=== PATIENT | female | born 1975 | race Caucasian/White ===

== ENCOUNTER 2019-09-20 12:18 | Emergency (ER) | payer SELFPAY ==
--- NOTE | ~2019-09-20 | CT_ITS ---
EXAMINATION: CT abdomen pelvis w con DATE: 09/20/2019 13:55 INDICATION: Abdominal pain TECHNIQUE: Computed tomography (CT) of the abdomen and pelvis was performed with 100 mL Omnipaque-350 intravenous contrast. Automated exposure control and iterative reconstruction technique were employe d. The dose-length product was 186.06 mGy-cm. COMPARISON: None FINDINGS: Lung bases are clear. Small sliding-type hiatal hernia. No pericardial or pleural effusion. Cholecyst ectomy clips the gallbladder fossa. Liver, spleen, bilateral adrenal glands and right kidney are norm al. 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 It is unclear whether disease subsequently fuse prior to the bladder. Bladder is decompressed w ith small amount of excreted contrast in the dependent trigonal regions. Numerous dystrophic calcific ations throughout the pancreas consistent with sequela of chronic pancreatitis. There is a stent exte nding from the main pancreatic duct in the body of the pancreas into the duodenum. The course of the stent lies anterior to the distal aspect of the common bile duct suggesting pancreas divisum. The com mon bile duct is mildly dilated which is within normal limits post cholecystectomy. Normal appendix. There are few sigmoid diverticula without adjacent inflammatory change to suggest diverticulitis. No bowel obstruction or abnormal bowel wall thickening. Couple fluid attenuation follicles at the left o vary the larger measuring 1.5 cm. The right ovary and anteverted uterus are normal. No free intraperi toneal gas or fluid. No pathologically enlarged abdominal or pelvic lymphadenopathy. Transitional tho racolumbar segment with bilateral hypoplastic riblets. Transitional lumbosacral segment which is sacr alized on the right and which also demonstrates an unfused spinous process. There are 4 intervening n onrib-bearing lumbar segments. IMPRESSION: 1. No acute intra-abdominal/pelvic process. 2. Small sliding-type hiatal hernia. 3. Pancreatic stent in expected position with extensive dystrophic calcifications throughout the panc reas consistent with sequela of chronic pancreatitis. Reviewed, dictated and finalized at location A. IMPRESSION: 1. No acute intra-abdominal/pelvic process. 2. Small sliding-type hiatal hernia. 3. Pancreatic stent in expected position with extensive dystrophic calcificatio ns throughout the pancreas consistent with sequela of chronic pancreatitis.
[2019-09-20 12:20] VITALS: BP 130/94; PULSE 118; RESP 19; TEMP 36.7; O2SAT 98
--- NOTE | 2019-09-20 12:39 | ED.ABDPAIN ---
HPI - Abdominal Pain General Chief Complaint: Abdominal Pain Stated Complaint: ABD PAIN - N/V Time Seen by Provider: 09/20/19 12:21 Source: RN notes reviewed History of Present Illness HPI narrative: Patient presents emergency department from home for abdominal pain. Patient states symptoms began 4 days ago. The pain is located across the upper abdomen described as aching in nature does not radiate. Associated with numerous episodes of nausea vomiting. Denies any diarrhea. Denies any fevers or chills or any other symptoms. Related Data Allergies Allergy/AdvReac Type Severity Reaction Status Date / Time codeine Allergy Unknown Verified 09/20/19 12:44 morphine Allergy Unknown Verified 09/20/19 12:44 Review of Systems Review of Systems: Narrative: Gen.: Denies fevers or chills ENT: Denies congestion Respiratory: Denies shortness of breath or cough CV: Denies chest pain or palpitations GI: See HPI denies burning, urgency, frequency or hematuria Musculoskeletal: Denies back pain or muscle pain Neuro: Denies numbness, tingling, weakness or focal weakness Skin: Denies rash Except as documented, all other systems reviewed and negative [facility] Surgical History Surgical History (Updated 09/20/19 @ 12:39 by Valeriano Chin DO) History of cholecystectomy Social History Social History (Updated 09/20/19 @ 12:39 by Valeriano Chin DO) Smoking packs per day: 0.5 Smoking cigarettes per day: 10.0 Gender identity (if verbalized by the patient): Female Exam Narrative: Exam Narrative: APPEARANCE: No acute distress, nontoxic, resting in bed HEENT: Normocephalic, atraumatic, OMM RESPIRATORY: No respiratory distress, clear to auscultation bilaterally with no rhonchi wheezing or rales CARDIOVASCULAR: RRR s murmur ABDOMINAL: Soft, nondistended, tender palpation epigastric and right upper quadrant left upper quadrant, no tenderness right lower quadrant left lower quadrant, no rebound or guarding MUSCULOSKELETAl: Moves all extremities. No clubbing, cyanosis or edema. NEURO: Awake and alert. Following commands, speech normal, no focal deficits SKIN:: Warm, dry. Normal Color PSYCHIATRIC: Normal affect/mood Course Course Emergency Course: Patient states she is currently visiting her father most from [facility] normally when this occurs abdominal pain she receives Dilaudid for pain management Patient states that they are feeling much better at this time. States abdominal pain has resolved. Repeat abdominal exam shows the patient's abdomen to be soft and nontender. Discussed with patient results of workup and diagnosis. Discussed need for follow-up with primary care physician, reasons to return to the emergency department in proper use of medication. Patient understands and agrees to current treatment plan Vital Signs Vital signs: Vital Signs Temperature 98.0 F 09/20/19 12:20 Pulse Rate 118 H 09/20/19 12:20 Respiratory Rate 19 09/20/19 12:20 Blood Pressure 130/94 H 09/20/19 12:20 Pulse Oximetry 98 09/20/19 12:20 Temperature 98.0 F 09/20/19 12:20 Pulse Rate 74 09/20/19 14:20 Respiratory Rate 16 09/20/19 14:20 Blood Pressure 141/97 H 09/20/19 14:20 Pulse Oximetry 98 09/20/19 14:20 MDM - Abdominal Pain MDM Narrative Medical decision making narrative: Patient's abdomen is soft without significant pain or signs of surgical abdomen on serial exams. Lab and x-ray evaluations are reviewed and patient is felt to be a reasonable candidate for outpatient management. Patient was instructed as to limitations of x-ray and laboratory evaluation and encouraged to return to ED or primary physician for repeat exam in 12 hours if continued or worsening pain Lab Data Result diagrams: 09/20/19 13:28 09/20/19 13:37 Labs: Lab Results 09/20/19 09/20/19 09/20/19 Range/Units 13:28 13:28 13:29 WBC 8.9 (4.5-10.0) K/mm3 RBC 5.05 (4.2-5.4) M/mm3 Hgb 17.2 H (12.0-
[2019-09-20] MEDS: ONDANSETRON INJ 4 MG/2 ML VIAL IV PUSH (12:54)
[2019-09-20] MEDS: SODIUM CHLORIDE 0.9% IV 1,000 ML 999 ML IV CONT ×2 (13:23→14:19)
[2019-09-20 13:36] LABS: Basophils Percent Auto 0.2 % (0.2-1.2); Eosinophils Absolute Auto 0.1 K/mm3 (0-0.3); Eosinophils Percent Auto 0.6 % (0-4.4); Hemoglobin 17.2 g/dL (12.0-15.0); Immature Granulocyte Absolute 0.03 K/mm3 (0.00-0.031); Immature Granulocyte Percent A 0.3 % (0-0.5); Lymphocytes Absolute Auto 1.58 K/mm3 (0.9-3.2); Lymphocytes Percent Auto 17.7 % (18.3-44.2); Mean Corpuscular HGB Conc 35.1 g/dl (32-36); Mean Corpuscular Hemoglobin 34.1 pg (26-34); Mean Platelet Volume 11.2 fl (7.4-10.4); Monocytes Absolute Auto 1.6 K/mm3 (0.1-0.6); Monocytes Percent Auto 18.4 % (2.6-8.5); Neutrophils Absolute Auto 5.6 K/mm3 (1.3-6.7); Neutrophils Percent Auto 62.8 % (45.5-73.1); Platelet Count Result 168 k/mm3 (150-375); Red Blood Count 5.05 M/mm3 (4.2-5.4); Red Cell Distribution Width 12.5 % (11.5-14.5); White Blood Count 8.9 K/mm3 (4.5-10.0)
[2019-09-20 13:37] LABS: Estimated CRCL calculation 110 ml/min; Estimated Glomerular Filt Rate > 60
[2019-09-20 13:42] LABS: Add Urine Microscopic? YES; Appearance Urine Cloudy (Clear); Bacteria Urine Trace /hpf; Bilirubin Urine 1+ (Negative); Blood Urine 1+ (Negative); Color Urine Amber (Yellow); Glucose Urine UA 1+ mg/dL (Negative); Hyaline Casts Urine 50+ /lpf; Ketones Urine 2+ mg/dL (Negative); Leukocyte Esterase Ur Negative LEU/UL (Negative); Mucus Urine Few /lpf; Nitrate Urine Negative (Negative); Protein Urine 3+ mg/dL (Negative); RBC Urine 0-2 /hpf (0-2); Squamous Epithelial Cell Urine Many /hpf (Few); WBC Urine 31-50 /hpf
[2019-09-20 13:49] LABS: Specific Grav Ur 1.037 (1.001-1.035)
[2019-09-20 13:49] LABS: Alanine Aminotransferase 24 U/L (4-35); Alkaline Phosphatase 97 U/L (38-126); Aspartate Amino Transferase 43 U/L (14-36); Bilirubin,Total 1.4 mg/dL (0.2-1.3); Blood Urea Nitrogen 12 mg/dL (7-17); Calcium 11.1 mg/dL (8.4-10.2); Carbon Dioxide 28 mmol/L (22-30); Chloride 87 mmol/L (98-107); Estimated CRCL calculation 110 ml/min; Estimated Glomerular Filt Rate > 60; Glucose 146 mg/dL (65-105); Lipase 72 U/L (23-300); Potassium 3.1 mmol/L (3.4-5.0); Sodium 131 mmol/L (137-145)
[2019-09-20] MEDS: PROMETHAZINE HCL 25 MG/ML AMPUL 12.5 MG IV PUSH (14:19)
[2019-09-20 14:20] VITALS: BP 141/97; PULSE 74; RESP 16; O2SAT 98
[2019-09-20] MEDS: HYDROMORPHONE HCL 1 MG/ML INJ 0.5 MG IV PUSH (16:01)
[2019-09-20] MEDS: POTASSIUM CHLORIDE 20 MEQ TABLET 40 MEQ PO (16:26)
== END 2019-09-20 17:05 | disposition home or self-care (01) ==
PROVIDERS: Emergency Provider Emergency Medicine
DX: R10.11 Right upper quadrant pain (principal); R11.2 Nausea with vomiting, unspecified; F17.210 Nicotine dependence, cigarettes, uncomplicated
CPT/HCPCS: 36415; 74177; 80053; 81001; 81025; 83690; 85025; 87086; 87088; 96361; 96365; 96375; 99284; A9270; J0131; J1170; J2405; J2550; J7030; Q9967

== ENCOUNTER 2019-11-28 21:31 | Emergency (ER) | payer MEDICAID, SELFPAY ==
--- NOTE | ~2019-11-28 | CT_ITS ---
EXAMINATION: CT abdomen pelvis w con EXAM DATE: 11/28/2019 22:25 INDICATION: Epigastric pain. TECHNIQUE: Spiral CT of the abdomen and pelvis was performed following intravenous injection of 100 m L Omnipaque 350. Axial, coronal and sagittal images were reviewed. The dose-length product (DLP) fo r this examination was 233.43 mGy-cm. The exposure was tailored according to patient size (auto mA e xposure control), and iterative reconstruction (ASIR) was used as additional dose reduction technique . Comparison is made to prior examination from 09/20/2019. FINDINGS: Multiple pancreatic calcifications, history of chronic pancreatitis. There is a pancreatic duct stent. Some dilation of the pancreatic tail duct. There are cholecystectomy clips. The liver, s pleen, adrenal glands are unremarkable. Portal and splenic veins are patent. Kidneys enhance symmet rically. There is no hydronephrosis. The uterus is unremarkable. Mildly dilated gonadal veins. The bladder is unremarkable. There is no retroperitoneal or pelvic lymphadenopathy. The appendix is normal. The stomach and small bowel are unremarkable. There is mild scattered coloni c diverticulosis. There is no adjacent inflammatory change to suggest diverticulitis. No free intra peritoneal gas. The heart is normal in size. There are no pericardial or pleural effusions. The l zeynep bases are unremarkable. There are no osteoblastic or osteolytic lesions identified. IMPRESSION: 1. No acute intra-abdominal findings. 2. Mildly dilated gonadal veins, possible pelvic congestion syndrome. 3. Mild colonic diverticulosis. Reviewed, dictated and finalized at location B.
[2019-11-28 21:34] VITALS: BP 138/99; PULSE 83; RESP 16; TEMP 36.8; O2SAT 100
[2019-11-28 22:00] LABS: Basophils Percent Auto 0.2 % (0.2-1.2); Hematocrit 44.4 % (37.0-47.0); Hemoglobin 15.5 g/dL (12.0-15.0); Immature Granulocyte Absolute 0.03 K/mm3 (0.00-0.031); Immature Granulocyte Percent A 0.4 % (0-0.5); Lymphocytes Absolute Auto 1.28 K/mm3 (0.9-3.2); Lymphocytes Percent Auto 15.8 % (18.3-44.2); Mean Corpuscular HGB Conc 34.9 g/dl (32-36); Mean Corpuscular Hemoglobin 34.4 pg (26-34); Mean Corpuscular Volume 98.4 fl (80-100); Mean Platelet Volume 10.4 fl (7.4-10.4); Monocytes Percent Auto 12.6 % (2.6-8.5); Neutrophils Absolute Auto 5.8 K/mm3 (1.3-6.7); Platelet Count Result 257 k/mm3 (150-375); Red Blood Count 4.51 M/mm3 (4.2-5.4); Red Cell Distribution Width 13.3 % (11.5-14.5); White Blood Count 8.1 K/mm3 (4.5-10.0)
[2019-11-28 22:07] LABS: Alanine Aminotransferase 16 U/L (4-35); Albumin Level 4.9 g/dL (3.5-5.1); Alkaline Phosphatase 95 U/L (38-126); Anion Gap 15 mmol/L (8-16); Aspartate Amino Transferase 24 U/L (14-36); Bilirubin,Total 0.8 mg/dL (0.2-1.3); Blood Urea Nitrogen 8 mg/dL (7-17); Calcium 10.2 mg/dL (8.4-10.2); Carbon Dioxide 25 mmol/L (22-30); Chloride 90 mmol/L (98-107); Estimated Glomerular Filt Rate > 60; Glucose 142 mg/dL (65-105); Lipase 54 U/L (23-300); Sodium 130 mmol/L (137-145)
[2019-11-28] MEDS: ONDANSETRON INJ 4 MG/2 ML VIAL IV PUSH (22:07)
[2019-11-28] MEDS: SODIUM CHLORIDE 0.9% IV 1,000 ML 999 ML IV CONT (22:08)
--- NOTE | 2019-11-28 22:10 | ED.ABDPAIN ---
HPI - Abdominal Pain General Chief Complaint: Abdominal Pain Stated Complaint: pancreatitis Time Seen by Provider: 11/28/19 21:42 Source: patient and family Mode of arrival: ambulatory Limitations: no limitations History of Present Illness HPI narrative: 44 years old white female presents with epigastric and right upper quadrant pain started 3 days ago associated with nausea and frequent vomiting. Patient cannot keep anything down. Patient also reports fever up to 100.6 and chills. History of cholecystectomy 2 years ago in [place] with complication. Last menstrual period 1 week ago, patient had similar symptoms in the last few months and came to our emergency room at that time. Related Data Allergies Allergy/AdvReac Type Severity Reaction Status Date / Time codeine Allergy Unknown Verified 10/19/19 13:24 morphine Allergy Unknown Verified 10/19/19 13:24 Review of Systems Review of Systems: Narrative: CONSTITUTIONAL: Denies fever, chills, or sweats. EYES: Denies visual changes, redness, or discharge. ENT: Denies rhinorrhea, congestion, sore throat, or otalgia. CARDIOVASCULAR: Denies chest pain, palpitations, or edema. RESPIRATORY: Denies cough or dyspnea. GASTROINTESTINAL: Denies abdominal pain, nausea, vomiting, or diarrhea. GENITOURINARY: Denies dysuria or hematuria. SKIN: Denies rash or itching. MUSCULOSKELETAL: Denies back pain, joint pain, or myalgia. NEUROLOGIC: Denies headache, numbness, or weakness. PSYCHIATRIC: Denies anxiety or depression. PMFSH Surgical History Surgical History History of cholecystectomy Social History Social History (Updated 11/28/19 @ 22:15 by Meghan Patrick MD) Smoking packs per day: 0.5 Smoking cigarettes per day: 10.0 Tobacco type: cigarettes Alcohol intake: current Substance use type: marijuana Living arrangements: with family Gender identity (if verbalized by the patient): Female Exam Narrative: Exam Narrative: General appearance: Well-developed, well-nourished Skin: Normal color Head: Normocephalic, nontraumatic Eyes: Clear conjunctiva ENT: Oropharynx normal, ears normal, nose normal Neck: Supple, nontender Chest and respiratory: Airway patent, no respiratory distress, no accessory muscle use Heart: Regular rate/rhythm Abdomen: Severe tenderness epigastric and right upper quadrant. Quiet bowel sounds Vascular: Normal peripheral pulses, normal capillary refill. Musculoskeletal: Normal range of motion, nontender back Neurologic: Alert and oriented ?3, BROOM MAN is normal as tested, no gross motor deficit Course Course Emergency Course: Improving Vital Signs Vital signs: Vital Signs Temperature 36.8 C 11/28/19 21:34 Pulse Rate 83 11/28/19 21:34 Respiratory Rate 16 11/28/19 21:34 Blood Pressure 138/99 H 11/28/19 21:34 Pulse Oximetry 100 11/28/19 21:34 Temperature 36.8 C 11/28/19 21:34 Pulse Rate 72 11/29/19 00:18 Respiratory Rate 20 11/29/19 00:18 Blood Pressure 122/85 11/29/19 00:18 Pulse Oximetry 100 11/29/19 00:18 MDM - Abdominal Pain MDM Narrative Medical decision making narrative: History of cholecystectomy with complication. Labs, CT abdomen and pelvis with IV contrast, IV fluids, IV Dilaudid, IV Zofran ordered. Further plan to follow Differential Diagnosis Differential diagnosis: Likely abdominal pain, constipation, diverticulitis, gastroenteritis, pancreatitis and small bowel obstruction Lab Data Result diagrams: 11/28/19 21:50 11/28/19 21:50 Labs: Lab Results 11/28/19 11/28/19 11/28/19 Range/Units 21:50 21:50 22:03 WBC 8.1 (4.5-10.0) K/mm3
[2019-11-28 22:11] LABS: Add Urine Microscopic? YES; Appearance Urine Clear (Clear); Bacteria Urine Trace /hpf; Bilirubin Urine 1+ (Negative); Blood Urine Negative (Negative); Color Urine Yellow (Yellow); Glucose Urine UA 1+ mg/dL (Negative); Ketones Urine 2+ mg/dL (Negative); Leukocyte Esterase Ur Negative LEU/UL (Negative); Mucus Urine Rare /lpf; Nitrate Urine Negative (Negative); Protein Urine 2+ mg/dL (Negative); RBC Urine 0-2 /hpf (0-2); Squamous Epithelial Cell Urine Many /hpf (Few)
[2019-11-28 22:12] LABS: Specific Grav Ur 1.032 (1.001-1.035)
[2019-11-28 22:14] VITALS: BP 156/81; PULSE 55; RESP 20; O2SAT 97
[2019-11-28 22:33] VITALS: BP 167/95; PULSE 58; RESP 20; O2SAT 98
[2019-11-28 23:55] VITALS: BP 122/85; PULSE 72; RESP 20; O2SAT 98
[2019-11-29] MEDS: ONDANSETRON INJ 4 MG/2 ML VIAL (00:15)
[2019-11-29] MEDS: POTASSIUM CHLORIDE 20 MEQ PACKET (FOR LIQUID) 40 MEQ PO (00:15)
[2019-11-29 00:18] VITALS: BP 122/85; PULSE 72; RESP 20; O2SAT 100
== END 2019-11-29 00:19 | disposition home or self-care (01) ==
PROVIDERS: Emergency Medicine; Emergency Provider Emergency Medicine
DX: F43.9 Reaction to severe stress, unspecified (principal); E87.6 Hypokalemia; E87.1 Hypo-osmolality and hyponatremia; R10.13 Epigastric pain; R11.10 Vomiting, unspecified; F17.210 Nicotine dependence, cigarettes, uncomplicated
CPT/HCPCS: 36415; 74177; 80053; 81001; 81025; 83690; 85025; 96361; 96374; 96375; 99284; A9270; J1170; J2405; J7030; Q9967

== ENCOUNTER 2020-07-31 10:36 | Emergency (ER) | payer OTHER, SELFPAY ==
--- NOTE | ~2020-07-31 | CT_ITS ---
EXAMINATION: CT abdomen pelvis w con DATE: 07/31/2020 12:17 INDICATION: Upper abdominal pain. Vomiting. TECHNIQUE: Computed tomography (CT) of the abdomen and pelvis was performed with 100 mL Omnipaque 350 intravenous contrast. Automated exposure control and iterative reconstruction technique were employe d. The dose-length product was 210.37 mGy-cm. COMPARISON: CT abdomen and pelvis 11/28/2019 FINDINGS: The visualized portions of the lung bases demonstrate calcified pulmonary nodules, consiste nt with old granulomatous disease. No pleural effusion. The heart size is normal. No pericardial effu pio. The liver and spleen are normal. There are changes of cholecystectomy. There are parenchymal ca lcifications in the pancreas, consistent with chronic pancreatitis. Pancreas divisum is noted. There is a stent in the pancreatic duct. The pancreatic duct is mildly dilated in the tail of the pancreas without change. The adrenal glands and kidneys are normal. There are no dilated loops of bowel. The a ppendix is normal. There are no pathologically enlarged lymph nodes. There is no free intraperitoneal fluid. There is mild lumbar spondylosis. IMPRESSION: 1. Chronic pancreatitis with pancreatic stent in expected position. Reviewed, dictated and finalized at location B.
[2020-07-31 10:50] VITALS: BP 151/93; PULSE 70; RESP 16; TEMP 36.4; O2SAT 98
[2020-07-31 11:00] LABS: Basophils Percent Auto 0.1 % (0.2-1.2); Hematocrit 52.1 % (37.0-47.0); Hemoglobin 18.1 g/dL (12.0-15.0); Immature Granulocyte Absolute 0.01 K/mm3 (0.00-0.031); Immature Granulocyte Percent A 0.1 % (0-0.5); Lymphocytes Absolute Auto 0.87 K/mm3 (0.9-3.2); Lymphocytes Percent Auto 12.1 % (18.3-44.2); Mean Corpuscular HGB Conc 34.7 g/dl (32-36); Mean Corpuscular Hemoglobin 34.2 pg (26-34); Mean Corpuscular Volume 98.3 fl (80-100); Mean Platelet Volume 10.7 fl (7.4-10.4); Monocytes Absolute Auto 1.1 K/mm3 (0.1-0.6); Monocytes Percent Auto 14.9 % (2.6-8.5); Neutrophils Absolute Auto 5.2 K/mm3 (1.3-6.7); Neutrophils Percent Auto 72.8 % (45.5-73.1); Platelet Count Result 181 k/mm3 (150-375); Red Cell Distribution Width 12.1 % (11.5-14.5); White Blood Count 7.2 K/mm3 (4.5-10.0)
[2020-07-31 11:10] LABS: Alanine Aminotransferase 23 U/L (4-35); Alkaline Phosphatase 89 U/L (38-126); Anion Gap 6 mmol/L (8-16); Aspartate Amino Transferase 36 U/L (14-36); Bilirubin,Total 0.6 mg/dL (0.2-1.3); Blood Urea Nitrogen 9 mg/dL (7-17); Calcium 9.6 mg/dL (8.4-10.2); Carbon Dioxide 35 mmol/L (22-30); Chloride 92 mmol/L (98-107); Estimated CRCL calculation 113 ml/min; Estimated Glomerular Filt Rate > 60; Glucose 150 mg/dL (65-105); Lipase 187 U/L (23-300); Potassium 3.4 mmol/L (3.4-5.0); Sodium 133 mmol/L (137-145)
[2020-07-31 11:12] LABS: Add Urine Microscopic? YES; Appearance Urine Cloudy (Clear); Bacteria Urine Trace /hpf; Bilirubin Urine 1+ (Negative); Blood Urine Negative (Negative); Color Urine Amber (Yellow); Glucose Urine UA 3+ mg/dL (Negative); Ketones Urine 2+ mg/dL (Negative); Leukocyte Esterase Ur Negative LEU/UL (Negative); Mucus Urine Heavy /lpf; Nitrate Urine Negative (Negative); Protein Urine 2+ mg/dL (Negative); RBC Urine 0-2 /hpf (0-2); Specific Grav Ur 1.029 (1.001-1.035); Squamous Epithelial Cell Urine Many /hpf (Few); WBC Urine 0-3 /hpf
[2020-07-31] MEDS: SODIUM CHLORIDE 0.9% IV 1,000 ML 999 ML IV CONT ×2 (11:28→14:01)
--- NOTE | 2020-07-31 11:47 | ED.NAVMDI ---
HPI - Nausea/Vomiting/Diarrhea General Chief complaint: Nausea/Vomiting/Diarrhea Stated complaint: n/v/d x 4 days, - covid yesterday Time Seen by Provider: 07/31/20 11:22 Source: patient Mode of arrival: ambulatory Limitations: no limitations History of Present Illness HPI Narrative: This is a 45-year-old female that presents the emergency department for nausea and vomiting x4 days. Associated with diarrhea. Also reports upper abdominal discomfort. Reports from the vomiting she is now having trouble with her reflux as well. She was seen yesterday at urgent care and given Zofran with little relief. Denies fever, dysuria, or hematuria. Related Data Allergies Allergy/AdvReac Type Severity Reaction Status Date / Time codeine Allergy Unknown Verified 10/19/19 13:24 morphine Allergy Unknown Verified 10/19/19 13:24 Review of Systems Review of Systems: Narrative: CONSTITUTIONAL: Denies fever GASTROINTESTINAL: Reports abdominal pain, nausea, vomiting, and diarrhea. GENITOURINARY: Denies dysuria or hematuria. All systems reviewed & are unremarkable except as noted in HPI and below PMFSH Surgical History Surgical History History of cholecystectomy Social History Social History (Updated 11/28/19 @ 22:15 by Meghan Patrick MD) Smoking packs per day: 0.5 Smoking cigarettes per day: 10.0 Tobacco type: cigarettes Alcohol intake: current Substance use type: marijuana Gender identity (if verbalized by the patient): Female Exam Narrative: Exam Narrative: GENERAL: Well-appearing, well-nourished, and in no acute distress. HEAD: Normocephalic, atraumatic. EYES: EOMI. CHEST: Clear to auscultation. No respiratory distress. No wheezes rales or rhonchi HEART: Regular rate and rhythm. No murmur heard. Normal peripheral pulses. ABDOMEN: Soft, nondistended, normal active bowel sounds. Tender to palpation throughout the upper abdomen, without guarding. No CVA tenderness EXTREMITIES: Normal range of motion. No edema. SKIN: Warm, dry, no rash. NEURO: No focal deficits. Alert and oriented x3. PSYCH: Normal mood and affect Course Consultations Consultation #1: Spoke with her primary about work-up who will follow-up in clinic. Date: 07/31/20 Time: 14:30 Vital Signs Vital signs: Vital Signs Temperature 97.6 F 07/31/20 10:50 Pulse Rate 70 07/31/20 10:50 Respiratory Rate 16 07/31/20 10:50 Blood Pressure 151/93 H 07/31/20 10:50 Pulse Oximetry 98 07/31/20 10:50 Temperature 97.6 F 07/31/20 10:50 Pulse Rate 78 07/31/20 13:08 Respiratory Rate 18 07/31/20 13:08 Blood Pressure 132/60 07/31/20 13:08 Pulse Oximetry 99 07/31/20 13:08 MDM - Nausea/Vomiting/Diarrhea MDM Narrative Medical decision making narrative: Patient presents the emergency department for nausea and vomiting x3 days. She is afebrile and nontoxic-appearing. CBC is without leukocytosis. Does show hemoconcentration. Metabolic panel also shows some dehydration, but normal kidney function. UA with evidence of dehydration as well, but no evidence of UTI. Bedside test is negative. CT scan abdomen pelvis shows chronic pancreatitis with pancreatic stent in expected position. Her lipase is normal. Patient hydrated and given antiemetic with improvement. Reports she is feeling much better. Spoke with her primary about work-up who will follow-up in clinic. Patient is stable and felt appropriate for further outpatient evaluation. She was given warnings to return to the ER Lab Data Attestation: I reviewed the patient's lab results. Result diagrams: 07/31/20 10:50 07/31/20 10:50 Labs: Lab Results 07/31/20 07/31/20 07/31/20 Range/Units 10:50 10:50 10:50 WBC 7.2 (4.5-10.0) K/mm3 RBC 5.30 (4.2-5.4) M/mm3 Hgb 18.1 H (12.0-15.0) g/dL Hct 52.1 H (37.0-47.0) % MCV 98.3 (80-100) fl MCH 34.2 H (26-34) pg MCHC 34.
[2020-07-31] MEDS: PROCHLORPERAZINE EDISYLATE 10 MG/2 ML VIAL IV PUSH (12:05)
[2020-07-31] MEDS: PANTOPRAZOLE SODIUM IV 40 MG VIAL IV PUSH (12:05)
[2020-07-31] MEDS: diphenhydrAMINE HCl INJ 50 MG/ML VIAL 25 MG IV PUSH (12:05)
[2020-07-31 13:08] VITALS: BP 132/60; PULSE 78; RESP 18; O2SAT 99
[2020-07-31 15:00] VITALS: BP 145/96; PULSE 61; RESP 18; O2SAT 98
--- NOTE | 2020-07-31 15:01 | PC.NURSE ---
Pt taking very small sips of water. states i feel better so i dont want to mess it up
--- NOTE | 2020-07-31 15:09 | PC.NURSE ---
Pt has approx 300 mL left in NS bag. Pt up for DC following
[2020-07-31 15:34] VITALS: BP 164/97; PULSE 58; RESP 18; O2SAT 19
== END 2020-07-31 15:36 | disposition home or self-care (01) ==
PROVIDERS: Emergency Provider Emergency Medicine; PCP Family Medicine
DX: K86.1 Other chronic pancreatitis (principal); F17.210 Nicotine dependence, cigarettes, uncomplicated; Z96.89 Presence of other specified functional implants
CPT/HCPCS: 36415; 74177; 80053; 81001; 81025; 83690; 85025; 96361; 96365; 96375; 99284; C9113; J0131; J0780; J1200; J7030; Q9967

== ENCOUNTER 2020-10-13 09:03 | Outpatient (CLI) | payer OTHER, SELFPAY ==
[2020-10-13 09:34] LABS: Basophils Percent Auto 0.8 % (0.2-1.2); Hematocrit 38.8 % (37.0-47.0); Hemoglobin 13.2 g/dL (12.0-15.0); Immature Granulocyte Absolute 0.01 K/mm3 (0.00-0.031); Immature Granulocyte Percent A 0.3 % (0-0.5); Lymphocytes Absolute Auto 0.46 K/mm3 (0.9-3.2); Lymphocytes Percent Auto 12.7 % (18.3-44.2); Mean Corpuscular Hemoglobin 33.5 pg (26-34); Mean Corpuscular Volume 98.5 fl (80-100); Mean Platelet Volume 9.9 fl (7.4-10.4); Monocytes Absolute Auto 0.4 K/mm3 (0.1-0.6); Monocytes Percent Auto 9.7 % (2.6-8.5); Neutrophils Absolute Auto 2.8 K/mm3 (1.3-6.7); Neutrophils Percent Auto 76.5 % (45.5-73.1); Platelet Count Result 147 k/mm3 (150-375); Red Blood Count 3.94 M/mm3 (4.2-5.4); Red Cell Distribution Width 13.5 % (11.5-14.5); White Blood Count 3.6 K/mm3 (4.5-10.0)
[2020-10-13 09:55] LABS: Alanine Aminotransferase 78 U/L (4-35); Albumin Level 4.4 g/dL (3.5-5.1); Alkaline Phosphatase 76 U/L (38-126); Amylase 48 U/L (30-110); Anion Gap 10 mmol/L (8-16); Aspartate Amino Transferase 145 U/L (14-36); Bilirubin,Total 0.8 mg/dL (0.2-1.3); Blood Urea Nitrogen 5 mg/dL (7-17); Calcium 9.1 mg/dL (8.4-10.2); Carbon Dioxide 27 mmol/L (22-30); Chloride 99 mmol/L (98-107); Cholesterol 197 mg/dL (0-200); Estimated Glomerular Filt Rate > 60; Glucose 92 mg/dL (65-105); Lipase 100 U/L (23-300); Potassium 3.9 mmol/L (3.4-5.0); Sodium 136 mmol/L (137-145); Triglycerides 74 mg/dL (<150)
[2020-10-13 09:57] LABS: LDL Cholesterol Direct 47 mg/dL
[2020-10-13 10:06] LABS: HDL Direct 132 mg/dL
[2020-10-13 10:22] LABS: Vitamin D 25 Hydroxy 25.1 ng/mL
[2020-10-13 10:55] LABS: Iron 73 ug/dL (37-170)
[2020-10-13 11:06] LABS: Percent Iron Saturation 26 % (20-50)
== END 2020-10-13 09:04 | disposition home or self-care (01) ==
PROVIDERS: PCP Internal Medicine; Visit Provider Clinical Nurse Specialist
DX: K86.1 Other chronic pancreatitis (principal); E55.9 Vitamin D deficiency, unspecified; R53.83 Other fatigue
CPT/HCPCS: 36415; 80053; 80061; 82150; 82306; 82728; 83540; 83550; 83690; 84443; 85025

== ENCOUNTER 2020-10-13 09:49 | Outpatient (CLI) | payer OTHER, SELFPAY ==
--- NOTE | ~2020-10-13 | MMUS_ITS ---
EXAMINATION: MM diag christy implant BI w lou, US breast BI limited HISTORY: Palpable right breast abnormality. Recent Covid vaccination 2 days ago and left arm. TECHNIQUE: Additional 3-D tomosynthesis images of the breasts were performed and synthetic 2-D images were generated. CAD analysis was submitted and interpreted. High resolution limited right breast and left axillary ultrasound was performed. COMPARISON: No prior studies for comparison. BREAST PARENCHYMAL COMPOSITION: Breast composed of scattered areas of fibroglandular density. FINDINGS: MAMMOGRAPHIC FINDINGS: There are bilateral subpectoral silicone implants. There are multiple enlarged left axillary lymph no paulette compared with the right. There are no discrete breast masses or calcifications. No architectural distortion. ULTRASOUND: Limited right breast ultrasound: Normal heterogeneous echotexture without focal solid or cystic mass. Left axillary ultrasound: There are multiple slurry lymph nodes identified, largest measuring 2.4 x 1 .7 x 0.8 cm, all of which retain normal fatty hilum. IMPRESSION: 1. Probable benign left axillary lymph node secondary to recent vaccination. 2. Recommend 6 month follow-up diagnostic left mammogram and ultrasound BI-RADS category 3, probably benign findings. Reviewed, dictated and finalized at location A. IMPRESSION: 1. Probable benign left axillary lymph node secondary to recent vaccination. 2. Recommend 6 month follow-up diagnostic left mammogram and ultrasound BI-RADS category 3, probably benign findings.
== END 2020-10-13 09:50 | disposition home or self-care (01) ==
LOC: ANHIMG 09:51
PROVIDERS: PCP Internal Medicine; Visit Provider Clinical Nurse Specialist
DX: N63.10 Unspecified lump in the right breast, unspecified quadrant (principal); R92.8 Other abnormal and inconclusive findings on diagnostic imaging of breast
CPT/HCPCS: 36415; 76642; 77062; 77066; 80053; 80061; 82150; 82306; 82728; 83540; 83550; 83690; 84443; 85025; G0279

== ENCOUNTER 2020-12-25 01:03 | Day surgery (SDC) | payer OTHER, SELFPAY ==
[2020-12-19 13:36] VITALS: BMI 17.2
--- NOTE | 2020-12-25 07:52 | WPDANESEPPF ---
Anes - Initial Pre Proc Eval Procedure: Operation Date: 12/25/20 11:00 Proposed Procedures p Esophagogastroduodenoscopy/Stent Removal - Alok Mercado MD s Screening Colonoscopy - Alok Mercado MD Date/Time: 12/25/20 07:52 Surgeon: Alok Mercado MD Pre Op Diagnosis: Neoplasm Screening Z12.11, Stent Removal T18.3XXA Patient Data Age: 45 Gender: F Height: 1.75 m Weight: 53 kg Allergies Allergy/AdvReac Type Severity Reaction Status Date / Time codeine Allergy Rash, Verified 12/25/20 10:22 itching morphine AdvReac Vomiting Verified 12/25/20 10:22 Home Medications Medication Instructions Recorded Confirmed Type multivitamin 1 tablet PO DAILY 11/22/20 12/19/20 History doxycycline monohydrate 100 mg PO DAILY 12/19/20 12/19/20 History fluticasone propionate 50 2 spray INTRANASAL DAILY #18.2 g 12/20/20 Rx mcg/actuation nasal spray,suspension Patient hx anesthesia problems: none Family hx anesthesia problems: none PMFSH Past Medical History Medical History (Updated 12/25/20 @ 07:53 by Yang Buck MD) Encounter for screening colonoscopy Smoker Vaginal delivery x3 Surgical History Surgical History History of breast augmentation 2014, implants History of cholecystectomy 2019 [place] teeth extracted 1998 Family History Family History Father Lung cancer Bladder cancer Diabetes mellitus Hypertension Mother Heart disease Social History Social History Smoking status: Current every day smoker Tobacco type: cigarettes and e-cigarettes/vaping Alcohol intake: current Drinks per week: 2 Substance use: never Substance use type: marijuana Living arrangements: with family Gender identity (if verbalized by the patient): Female Spiritual care concerns: No Anes - Eval Final PreProcedure Day of Procedure 12/25/20 07:52 Patient weight: overweight Heart: regular rate and rhythm Lungs: clear to auscultation and normal air movement Airway: Mallampati scale class II Neurological: alert and oriented Last oral intake: >/= 8 hours ASA classification: II Emergent: no Anesthetic plan: proceed Anesthesia type and monitoring: general GIVS Informed Consent: The patient's anesthetic plan and its attendant risks and benefits were discussed with the patient/family/POA. Questions were solicited and answers provided to the satisfaction of the patient/family/POA.
[2020-12-25 10:30] VITALS: BP 146/97; PULSE 91; RESP 16; TEMP 36.5; O2SAT 97; BMI 17.3
--- NOTE | 2020-12-25 11:05 | WPDHPUPDATE1 ---
History and Physical Update Update Date/Time: 12/25/20 11:05 History and Physical has been reviewed, including an updated exam of the patient. There are NO changes in the patient's condition. Risks, benefits, and alternatives have been discussed and questions answered. Patient agrees to proceed with procedure.
[2020-12-25] MEDS: LACTATED RINGERS 1,000 ML 150 ML IV CONT (11:13)
[2020-12-25 11:55] VITALS: BP 110/70; PULSE 43; RESP 19; O2SAT 100
[2020-12-25 12:08] VITALS: BP 109/74; PULSE 83; RESP 16; O2SAT 100
== END 2020-12-25 12:25 | disposition home or self-care (01) ==
PROVIDERS: PCP Internal Medicine; Visit Provider Internal Medicine Gastroenterology
PROC: 0DP08DZ Removal of Intraluminal Device from Upper Intestinal Tract, Via Natural or Artificial Opening Endoscopic (ICD-10-PCS; CPT 43247; principal; 2020-12-25 11:00)
PROC: 0DJD8ZZ Inspection of Lower Intestinal Tract, Via Natural or Artificial Opening Endoscopic (ICD-10-PCS; CPT 45378; 2020-12-25 11:00)
DX: Z12.11 Encounter for screening for malignant neoplasm of colon (principal); K63.5 Polyp of colon; K64.8 Other hemorrhoids; Z46.59 Encounter for fitting and adjustment of other gastrointestinal appliance and device; Z90.49 Acquired absence of other specified parts of digestive tract; Z87.19 Personal history of other diseases of the digestive system; R74.8 Abnormal levels of other serum enzymes; R79.89 Other specified abnormal findings of blood chemistry; R11.0 Nausea; K29.70 Gastritis, unspecified, without bleeding; F12.90 Cannabis use, unspecified, uncomplicated; F17.290 Nicotine dependence, other tobacco product, uncomplicated
CPT/HCPCS: 45385; 43239; 43247; 88305; J2001; J2704; J7120

== ENCOUNTER 2021-01-31 12:06 | Emergency (ER) | payer OTHER, SELFPAY ==
[2021-01-31 12:08] VITALS: BP 174/81; PULSE 107; RESP 20; TEMP 35.6; O2SAT 99
[2021-01-31 13:10] LABS: Add Urine Microscopic? YES; Appearance Urine Cloudy (Clear); Bilirubin Urine Negative (Negative); Blood Urine Negative (Negative); Color Urine Yellow (Yellow); Glucose Urine UA Negative (Negative); Ketones Urine 1+ mg/dL (Negative); Leukocyte Esterase Ur Negative LEU/UL (Negative); Mucus Urine Rare /lpf; Nitrate Urine Negative (Negative); Protein Urine 2+ mg/dL (Negative); RBC Urine 0-2 /hpf (0-2); Specific Grav Ur 1.015 (1.001-1.035); Squamous Epithelial Cell Urine Many /hpf (Few); Urobilinogen Urine Negative mg/dL (<2.0); WBC Urine 0-3 /hpf
[2021-01-31] MEDS: LORazepam (*CRX) 1 MG TABLET PO (13:18)
[2021-01-31 13:26] LABS: Amphetamine Screen Urine Negative (Negative); Barbiturate Screen Urine Negative (Negative); Benzodiazepines Screen Urine Negative (Negative); Cannabinoid Screen Urine Positive (Negative); Cocaine Screen Urine Negative (Negative); Methadone Screen Urine Negative (Negative); Opiate Screen Urine Negative (Negative); Phencyclidine Screen Urine Negative (Negative)
[2021-01-31 13:41] LABS: Basophils Absolute Auto 0.1 K/mm3 (0.0-0.1); Eosinophils Percent Auto 0.4 % (0-4.4); Hemoglobin 15.6 g/dL (12.0-15.0); Immature Granulocyte Absolute 0.02 K/mm3 (0.00-0.031); Immature Granulocyte Percent A 0.4 % (0-0.5); Lymphocytes Absolute Auto 1.06 K/mm3 (0.9-3.2); Lymphocytes Percent Auto 22.2 % (18.3-44.2); Mean Corpuscular HGB Conc 34.7 g/dl (32-36); Mean Corpuscular Hemoglobin 34.7 pg (26-34); Mean Corpuscular Volume 100.2 fl (80-100); Monocytes Absolute Auto 0.6 K/mm3 (0.1-0.6); Monocytes Percent Auto 12.6 % (2.6-8.5); Neutrophils Percent Auto 63.4 % (45.5-73.1); Platelet Count Result 232 k/mm3 (150-375); Red Blood Count 4.49 M/mm3 (4.2-5.4); Red Cell Distribution Width 12.2 % (11.5-14.5); White Blood Count 4.8 K/mm3 (4.5-10.0)
[2021-01-31 14:08] LABS: Alanine Aminotransferase 188 U/L (4-35); Albumin Level 4.7 g/dL (3.5-5.1); Alkaline Phosphatase 108 U/L (38-126); Anion Gap 14 mmol/L (8-16); Aspartate Amino Transferase 284 U/L (14-36); Bilirubin,Total 0.9 mg/dL (0.2-1.3); Blood Urea Nitrogen 6 mg/dL (7-17); Calcium 9.7 mg/dL (8.4-10.2); Carbon Dioxide 29 mmol/L (22-30); Chloride 93 mmol/L (98-107); Estimated CRCL calculation 96 ml/min; Estimated Glomerular Filt Rate > 60; Glucose 120 mg/dL (65-110); Potassium 3.5 mmol/L (3.4-5.0); Sodium 136 mmol/L (137-145)
[2021-01-31 14:09] LABS: Ethanol 47 mg/dL (<10)
[2021-01-31 14:39] LABS: Thyroid Stimulating Hormone 0.696 uIU/mL (0.465-4.680)
--- NOTE | 2021-01-31 15:04 | ED.GENADULT ---
HPI - General Adult General Chief complaint: Psychiatric Symptoms <JENIFER Garcia Last Filed: 01/31/21 17:56> Stated complaint: mental health crisis <JENIFER Garcia Last Filed: 01/31/21 17:56> Time Seen by Provider: 01/31/21 12:18 <JENIFER Garcia Last Filed: 01/31/21 17:56> Source: patient and RN notes reviewed <JENIFER Garcia Last Filed: 01/31/21 17:56> Mode of arrival: ambulatory <JENIFER Garcia Last Filed: 01/31/21 17:56> Limitations: no limitations <JENIFER Garcia Last Filed: 01/31/21 17:56> History of Present Illness HPI narrative: Patient is a 46-year-old female who presents to emergency department for evaluation of anxiety depression with stress from her family member she is caring for that has cancer patient is living with her family member who is sick with cancer she is from [place] away from her family she is also currently going through a divorce which is causing increasing stress she notes that this is been going on for weeks and has been having nausea and vomiting associated with the stress denies any suicidal or homicidal ideation she is not seen anyone for this would like to see a therapist but is having difficulty doing so <JENIFER Garcia Last Filed: 01/31/21 17:56> Related Data Home medications: Home Medications Medication Instructions Recorded Confirmed multivitamin 1 tablet PO DAILY 11/22/20 12/19/20 doxycycline monohydrate 100 mg PO DAILY 12/19/20 12/19/20 <JENIFER Garcia Last Filed: 01/31/21 17:56> Allergies/adverse reactions: Allergies Allergy/AdvReac Type Severity Reaction Status Date / Time codeine Allergy Rash, Verified 12/25/20 10:22 itching morphine AdvReac Vomiting Verified 12/25/20 10:22 <JENIFER Garcia Last Filed: 01/31/21 17:56> Review of Systems Review of Systems: All systems reviewed & are unremarkable except as noted in HPI and below <JENIFER Garcia Last Filed: 01/31/21 17:56> PMFSH Past Medical History Medical History: Medical History Encounter for screening colonoscopy Smoker Vaginal delivery x3 <Yvan Ro PA-C - Last Filed: 01/31/21 17:56> Surgical History Surgical History: Surgical History History of breast augmentation 2015, implants History of cholecystectomy 2019 [place] teeth extracted 1998 <Yvan Ro PA-C - Last Filed: 01/31/21 17:56> Family History Family History: Family History Father Lung cancer Bladder cancer Diabetes mellitus Hypertension Mother Heart disease <Yvan Ro PA-C - Last Filed: 01/31/21 17:56> Social History Social History: Social History Smoking status: Current every day smoker Tobacco type: cigarettes and e-cigarettes/vaping Alcohol intake: current Drinks per week: 2 Substance use: never Substance use type: does not use Gender identity (if verbalized by the patient): Female Spiritual care concerns: No <Yvan Ro PA-C - Last Filed: 01/31/21 17:56> Exam Narrative: GENERAL: Well-appearing, well-nourished, and in no acute distress. HEAD: Normocephalic, atraumatic. EYES: PERRLA and EOMI. ENT: Nares clear, no rhinorrhea or epistaxis. Mucous membranes moist. CHEST: Clear to auscultation. No respiratory distress. No wheezes rales or rhonchi HEART: Regular rate and rhythm. No murmur heard. Normal peripheral pulses. ABDOMEN: Soft, nontender, nondistended EXTREMITIES: Normal range of motion. No edema. SKIN: Warm, dry, no rash. NEURO: No focal deficits. Alert and oriented x3. PSYCH: Normal mood and affect. <Yvan Ro PA-C - Last Filed: 01/31/21 17:56> C[facility]
[2021-01-31 15:47] VITALS: BP 160/80; PULSE 99; RESP 19; O2SAT 100
--- NOTE | 2021-01-31 15:49 | PC.NURSE ---
Crisis contacted. Tanya states she will send out Liz to speak with pt
[2021-01-31 15:55] LABS: Hepatitis B Surface Antigen Negative (Negative)
[2021-01-31 16:01] LABS: HAV RESULT Negative (Negative); Hepatitis B Core IgM Result Negative (Negative)
[2021-01-31 16:12] LABS: Hepatitis C Virus Antibody Negative (Negative)
[2021-01-31 17:05] LABS: Lipase 69 U/L (23-300)
[2021-01-31 18:09] VITALS: PULSE 86; RESP 18; O2SAT 100
== END 2021-01-31 18:04 | disposition home or self-care (01) ==
PROVIDERS: Emergency Medicine Emergency Medical Services; Emergency Provider General Practice; PCP Internal Medicine
DX: F41.9 Anxiety disorder, unspecified (principal); R94.5 Abnormal results of liver function studies
CPT/HCPCS: 36415; 80053; 80074; 80307; 81001; 81025; 83690; 84443; 85025; 99283; A9270